=== PATIENT | female | born 1990 | race Two or more races ===

== ENCOUNTER 2019-01-15 22:18 | Emergency (ER) | payer MEDICAID ==
[~2019-01-15] VITALS: Ht 167.6 cm; Wt 52.2 kg
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
--- NOTE | 2019-01-15 22:30 | NUR ---
[facility]ANGE[facility] POLLACK AT BEDSIDE FOR EVALUATION
--- NOTE | 2019-01-15 23:01 | NUR ---
[facility] AT BEDSIDE
--- NOTE | 2019-01-15 23:31 | NUR ---
Patient discharged to home in stable condition. Written and verbal after care instructions given. Patient verbalizes understanding of instruction. IV removed. Catheter intact and site benign. Pressure and 4x4 applied to site. No bleeding noted.Pt ambulatory with a steady gait
[2019-01-15 23:33] VITALS: BP 139/81
== END 2019-01-15 23:33 | disposition home or self-care (01) ==
LOC: ER 22:20
DX: Z04.1 Encounter for examination and observation following transport accident (principal)